=== PATIENT | male | born 1980 | race Two or more races ===

== ENCOUNTER 2024-06-30 10:57 | Emergency (ER) | payer MEDICAID, SELFPAY ==
[2024-06-30 11:07] VITALS: BP 107/66; PULSE 108; RESP 16; TEMP 36.6; O2SAT 98
[2024-06-30 11:33] VITALS: BMI 32.8
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
[2024-06-30] MEDS: IBUPROFEN TAB 600 MG TABLET PO (12:03)
== END 2024-06-30 12:05 | disposition home or self-care (01) ==
PROVIDERS: Emergency Provider Emergency Medicine
DX: Z02.89 Encounter for other administrative examinations (principal); S80.212A Abrasion, left knee, initial encounter; W18.49XA Other slipping, tripping and stumbling without falling, initial encounter
CPT/HCPCS: 99282; A9270